=== PATIENT | female | born 1980 | race Caucasian/White ===

== ENCOUNTER 2018-08-08 02:02 | Emergency (ER) | payer MEDICAID, OTHER ==
[2018-08-08 03:09] LABS: APPEARANCE,URINE CLOUDY (CLEAR); BILIRUBIN,URINE SMALL (NEGATIVE); COLOR,URINE YELLOW (YELLOW); GLUCOSE, URINE (UA) NEGATIVE (NEGATIVE); KETONES,URINE 40 mg/dL (NEGATIVE); LEUKOCYTE ESTERASE ,URINE NEGATIVE (NEGATIVE); NITRATE,URINE NEGATIVE (NEGATIVE); OCCULT BLOOD,URINE NEGATIVE (NEGATIVE); PH,URINE 5.5 (5.0-8.0); PROTEIN,URINE TRACE mg/dL (NEGATIVE)
[2018-08-08 03:25] LABS: BACTERIA,URINE Few /HPF (None Seen); RBC,URINE 0-1 /HPF (0-1); WBC,URINE 0-1 /HPF (0-1)
[2018-08-08 03:26] LABS: AMORPHOUS SEDIMENT,UR Many /LPF (None Seen); HCG,QUAL RESULT NEGATIVE (NEGATIVE)
[2018-08-08 03:32] LABS: BASOPHILS % (AUTO) 0.9 % (0.0-5.0); EOSINOPHILS % (AUTO) 4.4 % (0.0-8.0); HEMATOCRIT 35.6 % (36-48); LYMPHOCYTES % (AUTO) 35.7 % (21.0-51.0); MEAN CORPUSCULAR HEMOGLOBIN 32.2 pg (27.0-33.0); MEAN CORPUSCULAR HGB CONC 34.3 g/dL (32.0-36.0); MEAN CORPUSCULAR VOLUME 93.9 fL (79-99); MONOCYTES % (AUTO) 6.7 % (3.0-13.0); NEUTROPHILS % (AUTO) 52.3 % (40.0-77.0); NUCLEATED RED BLOOD CELLS 0.1 % (0.0-0.19); PLATELET COUNT (AUTO) 327 K/uL (130-400); RED BLOOD CELL COUNT(AUTO) 3.79 MIL/uL (4.00-5.50); WHITE BLOOD COUNT (AUTO) 7.8 K/uL (4.8-10.8)
[2018-08-08 03:34] LABS: INR 0.94 (0.85-1.15); PARTIAL THROMBOPLASTIN TIME 25.7 SEC (26.3-35.5); PROTHROMBIN TIME 9.9 SEC (9.6-11.6)
[2018-08-08] MEDS ORDERED: METOCLOPRAMIDE 10 MG/2 ML VIAL ONE (03:42)
[2018-08-08] MEDS ORDERED: ONDANSETRON HCL 4 MG/2 ML VIAL ONE (03:42)
[2018-08-08] MEDS ORDERED: FAMOTIDINE/PF 20 MG/2 ML VIAL IV ONE (03:43)
[2018-08-08] MEDS ORDERED: SODIUM CHLORIDE 0.9% 1000ML 2,000 ML IV ONE (03:43)
[2018-08-08] MEDS ORDERED: PANTOPRAZOLE 40 MG/VIAL IVP ONE (04:06)
[2018-08-08 04:27] LABS: ALBUMIN 3.4 g/dL (3.5-5.0); BILIRUBIN,TOTAL 0.5 mg/dL (0.2-1.0); CREATININE 0.7 mg/dL (0.5-1.5); POTASSIUM 3.5 mmol/L (3.5-5.1)
== END 2018-08-08 05:15 | disposition home or self-care (01) ==
LOC: EDH 02:02
DX: R10.13 Epigastric pain (principal); R10.30 Lower abdominal pain, unspecified; R14.0 Abdominal distension (gaseous); R11.0 Nausea; M54.6 Pain in thoracic spine; Z98.890 Other specified postprocedural states; Z72.0 Tobacco use
CPT/HCPCS: 36415; 80053; 81001; 81025; 82550; 83605; 83690; 85025; 85610; 85730; 96374; 96375; 99284; C9113; J2405; J2765; J3490; J7030

== ENCOUNTER 2021-08-13 22:08 | Emergency (ER) | payer OTHER ==
[~2021-08-13] VITALS: Ht 157.5 cm; Wt 108.9 kg
[2021-08-13 22:27] VITALS: BP 121/73
[2021-08-13] MEDS ORDERED: AMOX1TAB16 PO (22:42)
[2021-08-13] MEDS ORDERED: AMOX/CLAV 875/125MG TAB PO ONE (23:00)
[2021-08-13] MEDS ORDERED: ACETAMINOPHEN WITH CODEINE 1 TAB TAB PO ONE (23:00)
== END 2021-08-13 22:45 | disposition home or self-care (01) ==
LOC: EDH 22:08
DX: K08.89 Other specified disorders of teeth and supporting structures (principal)

== ENCOUNTER 2023-03-28 01:54 | Emergency (ER) | payer OTHER, BC ==
[~2023-03-28] VITALS: Ht 160 cm; Wt 117.9 kg
[~2023-03-28 01:54] MED LIST: AMOX1TAB16 PO
[2023-03-28 01:55] VITALS: BP 133/88; PULSE 96; RESP 18
== END 2023-03-28 03:33 | disposition left against medical advice (07) ==
LOC: EDH 01:54
DX: M54.50 Low back pain, unspecified (principal); Z53.21 Procedure and treatment not carried out due to patient leaving prior to being seen by health care provider
CPT/HCPCS: 99281